=== PATIENT | female | born 1990 | race American Indian/Alaskan Native ===

== ENCOUNTER 2019-04-30 11:26 | Emergency (ER) | payer OTHER ==
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
--- NOTE | 2019-04-30 12:54 | Emergency Department Report ---
HPI - General Chief Complaint: Back Pain/Injury Time Seen by Provider: 04/30/19 11:48 - HPI HPI: Room 36 The patient is a 28-year-old female presenting with a chief complaint back pain. The patient states for possible month she's had pain in her lower back and sharp and constant in nature. Patient states she takes Tylenol and helps temporarily but the pain returns. Patient states the pain increases with movement. Patient denies any preceding trauma. Patient denies history of fever, dysuria or hematuria. Patient currently gives her pain a score of 5/10. Location: [See above] Duration: [See above] Quality: [See above] Severity: [See above] Timing: [See above] Context: [See above] Modifying factors: [See above] Associated signs and symptoms: [see above] ED Past Medical Hx - Past Medical History Previous Medical History?: Yes Hx Asthma: Yes - Surgical History Past Surgical History?: No - Family History Family history: no significant - Social History Smoking Status: Current Some Day Smoker (1 cigarette daily) Substance Use Type: Alcohol (occasional), Marijuana - Medications Home Medications: Home Medications Medication Instructions Recorded Confirmed Last Taken Type ALBUTEROL Inhaler (OR & NICU) 2 puff IH QID PRN #1 inhalation 04/30/19 Unknown Rx [ProAir HFA Inhaler] Albuterol Sulfate [Albuterol 0.63% 0.63 mg IH TID PRN #90 ml 04/30/19 Unknown Rx NEBS] Nitrofurantoin [place]/M-Cryst 100 mg PO Q12HR #14 capsule 04/30/19 Unknown Rx [Macrobid CAP] ED Review of Systems ROS: Stated complaint: BACK PAIN/MISSED PERIOD Other details as noted in HPI Constitutional: denies: fever Eyes: denies: eye pain ENT: denies: throat pain Respiratory: denies: cough Cardiovascular: denies: chest pain Endocrine: no symptoms reported Gastrointestinal: denies: abdominal pain Genitourinary: denies: dysuria, hematuria Musculoskeletal: back pain Neurological: denies: headache Physical Exam - Physical Exam Vital Signs: Vital Signs 04/30/19 11:30 Temperature 98.7 F Pulse Rate 90 Respiratory 18 Rate Blood Pressure 128/76 O2 Sat by Pulse 100 Oximetry Physical Exam: GENERAL: The patient is well-developed well-nourished female lying on stretcher not appearing to be in acute distress. [] HEENT: Normocephalic. Atraumatic. Extraocular motions are intact. Patient has moist mucous membranes. NECK: Supple. Trachea midline CHEST/LUNGS: Clear to auscultation. There is no respiratory distress noted. HEART/CARDIOVASCULAR: Regular. There is no tachycardia. There is no gallop rub or murmur. ABDOMEN: Abdomen is soft, nontender. Patient has normal bowel sounds. There is no abdominal distention. SKIN: There is no rash. There is no edema. There is no diaphoresis. NEURO: The patient is awake, alert, and oriented. The patient is cooperative. The patient has no focal neurologic deficits. The patient has normal speech and gait. MUSCULOSKELETAL: There is no axial tenderness to palpation. There is no CVA tenderness bilaterally. There is no limitation range of motion. There is no evidence of acute injury. ED Course Vital Signs 04/30/19 11:30 Temperature 98.7 F Pulse Rate 90 Respiratory 18 Rate Blood Pressure 128/76 O2 Sat by Pulse 100 Oximetry ED Medical Decision Making - Lab Data Result diagrams: 04/30/19 16:36 - Radiology Data Radiology results: report reviewed (pelvic ultrasound), image reviewed (pelvic ultrasound) [facility] [address] [id number] Ultrasound Report Signed Patient: KAI NEVAREZ MR#: [id number] : 1990 Acct:[id number] Age/Sex: 28 / F ADM Date: 04/30/19 Loc: ED Attending Dr: Ordering Physician: CRYSTAL COOPER MD Date of Service: 04/30/19 Procedure(s): US OB transvaginal Accession Number(s): [id number] cc: CRYSTAL COOPER MD Obstetrical ultrasound. HISTORY: . Right adnexal pain. FINDINGS: Imaging was performed transabdominally and endovaginally. The uterus measures 7.4 x 4.4 x 7 cm. An early gestational sac is dated 7 weeks 5 days. heart tones are 161 bpm. A small subchorionic hemorrhage measures 1.8 x 1.6 x 1.2 cm. Right ovary measures 4.2 x 2.1 x 2.6 cm. A right adnexal mass measuring 2.7 cm appears relatively solid. Left ovary measures 3.1 x 2.2 x 1.9 cm and is normal. Both ovaries demonstrate flow. IMPRESSION: 1. Early intrauterine dated 7 weeks 5 days. A small subchorionic hemorrhage is present. 2. Right adnexal lesion most likely represents a hemorrhagic cyst or other benign lesion. Signer Name: Gino Kramer MD Signed: 04/30/2019 4:40 PM Workstation Name: [id number] Transcribed By: ES Dictated By: Gino Kramer MD Electronically Authenticated By: Gino Kramer MD Signed Date/Time: 04/30/19 1640 DD/ 1636 TD/TT: - Differential Diagnosis lumbar strain, pyelonephritis Critical care attestation.: If time is entered above; I have spent that time in minutes in the direct care of this critically ill patient, excluding procedure time. ED Disposition Clinical Impression: , UTI (urinary tract infection) Disposition: TO HOME OR SELFCARE Is pt being admited?: No Does the pt Need Aspirin: No Condition: Stable Additional Instructions: Return to the emergency department should you develop worsening symptoms, inability to tolerate food or liquids, high fever or any other concerns Prescriptions: Albuterol Sulfate [Albuterol 0.63% NEBS] 0.63 mg IH TID PRN #90 ml PRN Reason: Wheezing Nitrofurantoin [place]/M-Cryst [Macrobid CAP] 100 mg PO Q12HR #14 capsule ALBUTEROL Inhaler (OR & NICU) [ProAir HFA Inhaler] 2 puff IH QID PRN #1 inhalation PRN Reason: Shortness Of Breath Referrals: KAYLA MORAES MD [Staff Physician] - 3-5 Days (Dr. Moraes is an MAINTENANCE PLANNING CLERK. Please follow up with him for further evaluation) Time of Disposition: 17:01
[2019-04-30 15:07] LABS: Bacteria,Urine 1+ /HPF (Negative); Bilirubin,Urine NEG (Negative); Blood,Urine NEG (Negative); Color,Urine Yellow (Yellow); Mucus,Urine FEW /HPF; Protein,Urine <15 mg/dL mg/dL (Negative); Urobilinogen,Urine < 2.0 mg/dL (<2.0)
[2019-04-30 15:08] LABS: HCG Qualitative,Urine Positive (Negative)
--- NOTE | 2019-04-30 16:32 | Ultrasound Report ---
[facility] OBSTETRIC ULTRASOUND HISTORY: Right pelvic pain COMPARISON: None. TECHNIQUE: Routine transabdominal OB ultrasound performed. FINDINGS: Uterus: The uterus measures 7.4 x 4.4 x 7.0 cm. Gestational Sac: Well-defined oval shape and intrauterine in location. Yolk Sac: Normal in appearance. Fetus/Embryo: Bushyhead-rump length of 1.4 cm, corresponding to an estimated gestational age of 7 weeks 5 days. Embryonic/ anatomy is too small for evaluation. Embryonic/ cardiac activity: 164bpm Placenta: Too small for evaluation. Amniotic fluid volume: Subjectively appropriate for gestational age. Ovaries: The right ovary is normal in size and appearance with normal blood flow, measuring 4.2 x 2. 1 x 2.6 cm. The left ovary is normal in size and appearance with normal blood flow, measuring 3.1 x 2.2 x 1.9 cm. Hypoechoic space-occupying mass in the ovary with peripheral vascularity is most likel y the corpus luteum. Additional findings: A small subchorionic bleed is suspected along the anterior gestational sac. IMPRESSION Early live intrauterine . Small subchorionic bleed. Signer Name: Shashank Whitfield Jr, MD Signed: 04/30/2019 4:27 PM Workstation Name: [id number]
--- NOTE | 2019-04-30 16:44 | Ultrasound Report ---
Obstetrical ultrasound. HISTORY: . Right adnexal pain. FINDINGS: Imaging was performed transabdominally and endovaginally. The uterus measures 7.4 x 4.4 x 7 cm. An early gestational sac is dated 7 weeks 5 days. heart tones are 161 bpm. A small subchor ionic hemorrhage measures 1.8 x 1.6 x 1.2 cm. Right ovary measures 4.2 x 2.1 x 2.6 cm. A right adnexal mass measuring 2.7 cm appears relatively jill id. Left ovary measures 3.1 x 2.2 x 1.9 cm and is normal. Both ovaries demonstrate flow. IMPRESSION: 1. Early intrauterine dated 7 weeks 5 days. A small subchorionic hemorrhage is present. 2. Right adnexal lesion most likely represents a hemorrhagic cyst or other benign lesion. Signer Name: Gino Kramer MD Signed: 04/30/2019 4:40 PM Workstation Name: [id number]
[2019-04-30 16:54] LABS: Basophils # (Auto) 0.1 K/mm3 (0.0-0.1); Basophils % (Auto) 0.6 % (0.0-1.8); Eosinophils # (Auto) 0.8 K/mm3 (0.0-0.4); Eosinophils % (Auto) 5.4 % (0.0-4.3); Hematocrit 40.8 % (30.3-42.9); Hemoglobin 13.7 gm/dl (10.1-14.3); Lymphocytes # (Auto) 2.6 K/mm3 (1.2-5.4); Lymphocytes % (Auto) 18.2 % (13.4-35.0); Mean Corpuscular HGB Conc 34 % (30-34); Mean Corpuscular Volume 87 fl (79-97); Monocytes # (Auto) 0.7 K/mm3 (0.0-0.8); Monocytes % (Auto) 5.1 % (0.0-7.3); Platelet Count 338 K/mm3 (140-440); Red Cell Distribution Width 13.3 % (13.2-15.2)
[2019-04-30 17:14] LABS: BUN/Creatinine Ratio 10; Blood Urea Nitrogen 5 mg/dL (7-17); Calcium 9.2 mg/dL (8.4-10.2); Hemolysis Index 0
[2019-04-30 17:30] VITALS: BP 130/90
== END 2019-04-30 17:15 | disposition home or self-care (01) ==
LOC: ED 11:26
DX: O23.41 Unspecified infection of urinary tract in pregnancy, first trimester (principal); O99.511 Diseases of the respiratory system complicating pregnancy, first trimester; J45.909 Unspecified asthma, uncomplicated; O99.331 Smoking (tobacco) complicating pregnancy, first trimester; F17.200 Nicotine dependence, unspecified, uncomplicated; Z3A.01 Less than 8 weeks gestation of pregnancy
CPT/HCPCS: 36415; 76801; 76817; 80048; 81001; 81025; 84702; 85025

== ENCOUNTER 2019-06-10 10:43 | Observation (INO) | payer OTHER ==
[2019-06-10] MEDS ORDERED: IPRATROPIUM 0.02% NEBU 2.5 ML IH ONE ×2 (10:59→11:00)
[2019-06-10] MEDS ORDERED: MAGNESIUM SULFATE 2 GM/50 ML BAG IV ONE ×2 (10:59→11:00)
[2019-06-10] MEDS ORDERED: ALBUTEROL 2.5 MG/3 ML NEBU IH ONE ×4 (10:59→13:55)
[2019-06-10] MEDS ORDERED: SODIUM CHLORIDE 0.9% 1000 ML 1,000 ML ONE (11:00)
[2019-06-10] MEDS ORDERED: SODIUM CHLORIDE 0.9% 1000 ML 1,000 ML IV ONE (11:00)
--- NOTE | 2019-06-10 13:03 | Emergency Department Report ---
HPI - General Chief Complaint: Adult Asthma Time Seen by Provider: 06/10/19 10:57 - HPI HPI: 28-year-old female presents to the emergency department with complaint of shortness of breath, wheezing, coughing that she believes is an asthma exacerbation that has been going on for the past 2-3 days. She's been using her home nebulizer without any relief. No fever, chest pain. Patient says that she has also been dealing with a "cold" and says that usually her asthma is uncontrolled when she has a cold. Patient is currently 13 weeks pr egnant. She has just established care with an BIBLICAL STUDIES PROFESSOR through the [facility] system. ED Past Medical Hx - Past Medical History Previous Medical History?: Yes Hx Asthma: Yes - Social History Smoking Status: Never Smoker - Medications Home Medications: Home Medications Medication Instructions Recorded Confirmed Last Taken Type ALBUTEROL Inhaler (OR & NICU) 2 puff IH QID PRN #1 inhalation 04/30/19 06/11/19 Unknown Rx [ProAir HFA Inhaler] Albuterol Sulfate [Albuterol 0.63% 0.63 mg IH TID PRN #90 ml 04/30/19 06/11/19 Unknown Rx NEBS] ED Review of Systems ROS: Stated complaint: ASTHMA Other details as noted in HPI Comment: All other systems reviewed and negative Constitutional: denies: chills, fever Eyes: denies: eye pain, vision change ENT: denies: ear pain, throat pain Respiratory: cough, shortness of breath, wheezing Cardiovascular: denies: chest pain, edema Gastrointestinal: denies: abdominal pain, vomiting Genitourinary: denies: dysuria, discharge Musculoskeletal: denies: back pain, arthralgia Skin: denies: rash, lesions Neurological: denies: headache, weakness Physical Exam - Physical Exam Vital Signs: Vital Signs 06/10/19 06/10/19 06/10/19 10:46 10:52 10:54 Pulse Rate 124 H 110 H Respiratory 22 33 H 20 Rate Blood Pressure 134/77 O2 Sat by Pulse 98 97 98 Oximetry 06/10/19 06/10/19 11:00 11:16 Pulse Rate 121 H 103 H Respiratory 22 33 H Rate Blood Pressure 113/81 113/81 O2 Sat by Pulse 97 Oximetry Physical Exam: GENERAL: The patient is well-developed well-nourished. HENT: Normocephalic. Atraumatic. Patient has moist mucous membranes. EYES: Extraocular motions are intact. NECK: Supple. Trachea is midline. CHEST/LUNGS: Moderate to severe wheezing throughout the chest. There is some tachypnea but no accessory muscle use. HEART/CARDIOVASCULAR: Regular. There is moderate tachycardia. There is no murmur. ABDOMEN: Abdomen is soft, nontender. Patient has normal bowel sounds. There is no abdominal distention. SKIN: Skin is warm and dry. NEURO: The patient is awake, alert, and oriented. The patient is cooperative. The patient has no focal neurologic deficits. Normal speech. MUSCULOSKELETAL: There is no tenderness or deformity. There is no evidence of acute injury. ED Course Vital Signs 06/10/19 06/10/19 06/10/19 10:46 10:52 10:54 Pulse Rate 124 H 110 H Respiratory 22 33 H 20 Rate Blood Pressure 134/77 O2 Sat by Pulse 98 97 98 Oximetry 06/10/19 06/10/19 11:00 11:16 Pulse Rate 121 H 103 H Respiratory 22 33 H Rate Blood Pressure 113/81 113/81 O2 Sat by Pulse 97 Oximetry - Consultations Consultation #1: 06/10/19 15:[address] Lacey, OBGYN, regarding this patient with an asthma exacerbation requiring admission. She is ok with giving the solumedrol in this early . She says she is happy to consult if necessary and asked to speak to the admitting hospitalist regarding how she can assist. ED Medical Decision Making - Lab Data Result diagrams: 06/10/19 13:55 06/11/19 06:40 - Radiology Data Radiology results: image reviewed interpreted by me: Chest x-ray does not show any acute process. There are no pleural effusions, obvious pneumonia and there is no pneumothorax. - Medical Decision Making This patient presents with a few days of progressively worsening shortness of breath, wheezing and coughing that she feels is consistent with her asthma. This is refractory to the home nebulized treatments she has been using. Patient does present with some moderate to severe bronchospasm. She has some tachypnea but does not require BiPAP or intubation at this time. She was given IV fluid, magnesium, and a continuous breathing treatment. She was reevaluated and did not have any improvement. A shielded chest x-ray was completed that did not show any pneumonia, pleural effusions or any other acute process. Labs have been unremarkable. The patient was given another 7.5 mg of albuterol and once again reevaluated and did not appear to have any improvement. Solu-Medrol was added. Along with the breathing treatments that she had at home prior to arrival, the patient has had close to 25 mg of albuterol, along with the other medications as treatment given here, and still has tachypnea, tachycardia and moderate bronchospasm. For this reason, I feel the patient would benefit from admission to the hospital. The case was presented to the admitting hospitalist, Dr. Berumen, for further evaluation and either admission or further disposition. At his request, given the patient's status, the BIBLICAL STUDIES PROFESSOR on-call has been contacted and consulted. - Differential Diagnosis asthma, pneumonia, CHF, bronchitis Critical Care Time: No Critical care attestation.: If time is entered above; I have spent that time in minutes in the direct care of this critically ill patient, excluding procedure time. ED Disposition Clinical Impression: Status asthmaticus Qualifiers: Asthma severity: unspecified severity Asthma persistence: unspecified Qualified Code(s): J45.902 - Unspecified asthma with status asthmaticus Qualifiers: Weeks of gestation: 13 weeks Qualified Code(s): Z3A.13 - 13 weeks gestation of Disposition: OP ADMIT IP TO THIS HOSP Is pt being admited?: Yes Condition: Fair Time of Disposition: 15:29
--- NOTE | 2019-06-10 14:13 | XRay Report ---
CHEST 1 VIEW 06/10/2019 1:45 PM INDICATION / CLINICAL INFORMATION: SOB. COMPARISON: None available. FINDINGS: SUPPORT DEVICES: None. HEART / MEDIASTINUM: No significant abnormality. LUNGS / PLEURA: No significant pulmonary or pleural abnormality. No pneumothorax. ADDITIONAL FINDINGS: No significant additional findings. IMPRESSION: 1. No acute findings. Signer Name: Jose Armando MD Signed: 06/10/2019 2:09 PM Workstation Name: [id number]
[2019-06-10 14:14] LABS: Basophils % (Auto) 0.2 % (0.0-1.8); Eosinophils # (Auto) 0.3 K/mm3 (0.0-0.4); Eosinophils % (Auto) 2.3 % (0.0-4.3); Hematocrit 31.4 % (30.3-42.9); Hemoglobin 10.5 gm/dl (10.1-14.3); Lymphocytes # (Auto) 1.4 K/mm3 (1.2-5.4); Lymphocytes % (Auto) 9.5 % (13.4-35.0); Mean Corpuscular HGB Conc 34 % (30-34); Mean Corpuscular Volume 86 fl (79-97); Monocytes # (Auto) 0.7 K/mm3 (0.0-0.8); Monocytes % (Auto) 4.7 % (0.0-7.3); Platelet Count 218 K/mm3 (140-440); Red Blood Count 3.66 M/mm3 (3.65-5.03); Red Cell Distribution Width 12.9 % (13.2-15.2)
[2019-06-10 14:19] LABS: INR 0.96 (0.87-1.13)
[2019-06-10 14:34] LABS: BUN/Creatinine Ratio 10; Blood Urea Nitrogen 4 mg/dL (7-17); Calcium 7.7 mg/dL (8.4-10.2); Hemolysis Index 1
[2019-06-10] MEDS ORDERED: methylPREDNISolone Sod Succinate 125 MG/2 ML INJ IV ONE (14:55)
--- NOTE | 2019-06-10 18:02 | History and Physical Report ---
History of Present Illness Chief complaint: Im wheezing, and I have a cold History of present illness: 28 YO Female at 13 weeks Gestation with Asthma, Nicotine Dependence presents to ED for evaluation. Pt states that she has experienced shortness of breath, nasal congestion, dry cough over the past 3 days with worsening symptoms over the same time frame. Pt states that symptoms are not relieved with increased nebulizer therapy. Pt transported to [facility] via private vehicle. Pt seen and evaluated in ED and found to have Asthma Exacerbation. Pt treated with nebulizer therapy without significant improvement in symptoms. Pt placed in observation status and admitted to medical floor. Pt denies fever, chills, CP, Palpitations, NVD, Trauma, BRBPR, Skin Rash, Syncope, or recent ill contacts. Past History Past Medical History: other (see HPI) Past Surgical History: No surgical history, Other (reviewed) Social history: single, smoking. denies: alcohol abuse, prescription drug abuse Family history: hypertension Medications and Allergies Allergies Allergy/AdvReac Type Severity Reaction Status Date / Time No Known Allergies Allergy Unverified 04/30/19 11:26 Home Medications Medication Instructions Recorded Confirmed Last Taken Type ALBUTEROL Inhaler (OR & NICU) 2 puff IH QID PRN #1 inhalation 04/30/19 Unknown Rx [ProAir HFA Inhaler] Albuterol Sulfate [Albuterol 0.63% 0.63 mg IH TID PRN #90 ml 04/30/19 Unknown Rx NEBS] Nitrofurantoin [place]/M-Cryst 100 mg PO Q12HR #14 capsule 04/30/19 Unknown Rx [Macrobid CAP] Review of Systems Constitutional: no weight loss, no weight gain, no fever, no chills, no anorexia, no weakness, no malaise, no lethargy Ears, nose, mouth and throat: nasal congestion, sore throat, no ear pain, no ear discharge Cardiovascular: no chest pain, no orthopnea, no palpitations, no rapid/irregular heart beat, no edema, no syncope Respiratory: cough, cough with sputum, shortness of breath, congestion, wheezing, no pleurisy, no pain, no pain on inspiration Gastrointestinal: no abdominal pain, no nausea, no vomiting, no diarrhea, no constipation, no change in bowel habits Genitourinary Female: no pelvic pain, no flank pain, no dysuria, no urinary frequency Rectal: no pain, no incontinence, no bleeding Musculoskeletal: no neck stiffness, no shooting arm pain, no arm numbness/tingling, no low back pain, no redness of joints Integumentary: no rash, no pruritis, no sores, no wounds, no boils Psychiatric: no anxiety, no memory loss, no sleep disturbances, no hypersomnia, no change in libido, no suicidal ideation Endocrine: no cold intolerance, no heat intolerance, no polyuria, no nocturia Hematologic/Lymphatic: no easy bruising, no easy bleeding, no lymphadenopathy, no lymphedema Allergic/Immunologic: no urticaria, no allergic rhinitis, no persistent infections, no angioedema Exam - Constitutional Vitals: Temp Pulse Resp BP Pulse Ox 124 H 18 133/84 95 06/10/19 17:30 06/10/19 17:30 06/10/19 17:30 06/10/19 16:30 General appearance: Present: mild distress - EENT Eyes: Present: PERRL ENT: hearing intact, clear oral mucosa - Neck Neck: Present: supple, normal ROM - Respiratory Respiratory effort: labored, accessory muscle use Respiratory: bilateral: diminished, wheezing - Cardiovascular Heart Sounds: Present: S1 & S2. Absent: rub, click - Extremities Extremities: pulses symmetrical, No edema Peripheral Pulses: within normal limits - Abdominal General gastrointestinal: Present: soft, non-tender, non-distended, normal bowel sounds Female genitourinary: Present: normal - Integumentary Integumentary: Present: clear, warm, dry - Musculoskeletal Musculoskeletal: gait normal, strength equal bilaterally - Psychiatric Psychiatric: appropriate mood/affect, intact judgment & insight - Neurologic Neurologic: CNII-XII intact, moves all extremities Results - Labs CBC & Chem 7: 06/10/19 13:55 06/10/19 13:55 Labs: Abnormal lab results 06/10/19 06/10/19 06/10/19 Range/Units 13:55 13:55 15:57 WBC 15.0 H (4.5-11.0) K/mm3 RDW 12.9 L (13.2-15.2) % Lymph % (Auto) 9.5 L (13.4-35.0) % Seg Neutrophils % 83.3 H (40.0-70.0) % Seg Neutrophils # 12.5 H (1.8-7.7) K/mm3 POC ABG pCO2 29.1 L (35-45) POC ABG pO2 78 L (80-105) Chloride 107.8 H (98-107) mmol/L Carbon Dioxide 21 L (22-30) mmol/L BUN 4 L (7-17) mg/dL Creatinine 0.4 L (0.7-1.2) mg/dL Calcium 7.7 L (8.4-10.2) mg/dL Assessment and Plan - Patient Problems (1) Asthma exacerbation Current Visit: Yes Status: Acute Qualifiers: Asthma severity: moderate Asthma persistence: persistent Qualified Code(s): J45.41 - Moderate persistent asthma with (acute) exacerbation Plan to address problem: Supplemental oxygen, nebulizer therapy, Iv steroid therapy, pulse oximetry, CBC, CMP, supportive care. (2) Nicotine dependence Current Visit: Yes Status: Acute Qualifiers: Nicotine product type: cigarettes Substance use status: in withdrawal Qualified Code(s): F17.213 - Nicotine dependence, cigarettes, with withdrawal Plan to address problem: Smoking cessation counseling, supportive care. (3) Current Visit: Yes Status: Acute Qualifiers: Weeks of gestation: 13 weeks Qualified Code(s): Z3A.13 - 13 weeks gestation of Plan to address problem: OB consulted in ED. (4) Leukocytosis Current Visit: Yes Status: Acute Qualifiers: Leukocytosis type: unspecified Qualified Code(s): D72.829 - Elevated white blood cell count, unspecified Plan to address problem: Secondary to steroid administration, supportive care, Repeat cbc in AM (5) DVT prophylaxis Current Visit: Yes Status: Acute Plan to address problem: SCD to BLE while in bed,
[2019-06-10] MEDS ORDERED: ONDANSETRON 4 MG/2 ML INJ IV PRN (18:03)
[2019-06-11] MEDS: ACETAMINOPHEN 325 MG TAB PO PRN ×2 (01:35→16:07)
[2019-06-11] MEDS: ALBUTEROL 2.5 MG/3 ML NEBU IH PRN ×2 (01:52→08:53)
[2019-06-11] MEDS: methylPREDNISolone Sod Succinate 40 MG/1 ML INJ IV SCH ×2 (05:44→17:24)
[2019-06-11 07:34] LABS: BUN/Creatinine Ratio 15; Blood Urea Nitrogen 6 mg/dL (7-17); Calcium 8.6 mg/dL (8.4-10.2); Hemolysis Index 1
--- NOTE | 2019-06-11 13:38 | Consultation ---
History of Present Illness Consult date: 06/11/19 Reason for consult: early problem History of present illness: 28y/o @ 13+5 weeks admitted for acute exacerbation of asthma. Patient reports having to use her inhaler every hour to manage her symptoms. She denies any vaginal bleeding or pelvic pain. Patient had an ultrasound 04/30 which established her EDC @ 12/12/19. The patient is being admitted for management of her asthma. Past History Past Medical History: asthma - Obstetrical History Expected Date of Delivery: 12/12/19 Actual Gestation: 13 Week(s) 5 Day(s) : 1 Para: 0 Hx # Term Pregnancies: 0 Number of Pregnancies: 0 Spontaneous Abortions: 0 Induced : 0 Number of Living Children: 0 Medications and Allergies Allergies Allergy/AdvReac Type Severity Reaction Status Date / Time No Known Allergies Allergy Unverified 04/30/19 11:26 Home Medications Medication Instructions Recorded Confirmed Last Taken Type ALBUTEROL Inhaler (OR & NICU) 2 puff IH QID PRN #1 inhalation 04/30/19 06/11/19 Unknown Rx [ProAir HFA Inhaler] Albuterol Sulfate [Albuterol 0.63% 0.63 mg IH TID PRN #90 ml 04/30/19 06/11/19 Unknown Rx NEBS] Active Meds: Active Medications Acetaminophen (Tylenol) 650 mg PO Q4H PRN PRN Reason: Pain MILD(1-3)/Fever >100.5/[place] Last Admin: 06/11/19 01:35 Dose: 650 mg Documented by: Albuterol (Proventil) 2.5 mg IH Q4HRT PRN PRN Reason: Shortness Of Breath Last Admin: 06/11/19 08:53 Dose: 2.5 mg Documented by: Methylprednisolone Sodium Succinate (Solu-Medrol) 40 mg IV Q12H JARETT Last Admin: 06/11/19 05:44 Dose: 40 mg Documented by: Ondansetron HCl (Zofran) 4 mg IV Q8H PRN PRN Reason: Nausea And Vomiting Sodium Chloride (Sodium Chloride Flush Syringe 10 Ml) 10 ml IV BID JARETT Last Admin: 06/10/19 22:00 Dose: 10 ml Documented by: Sodium Chloride (Sodium Chloride Flush Syringe 10 Ml) 10 ml IV PRN PRN PRN Reason: LINE FLUSH Review of Systems All systems: negative Respiratory: shortness of breath, wheezing, respiratory infections - Vital Signs Vital signs: Vital Signs Pulse Resp BP Pulse Ox 124 H 22 134/77 98 06/10/19 10:46 06/10/19 10:46 06/10/19 10:46 06/10/19 10:46 Temp Pulse Resp BP Pulse Ox 99.0 F 98 H 18 111/75 97 06/11/19 11:31 06/11/19 11:31 06/11/19 11:31 06/11/19 11:31 06/11/19 11:31 Results Result Diagrams: 06/10/19 13:55 06/11/19 06:40 Abnormal lab results 06/10/19 06/10/19 06/10/19 Range/Units 13:55 13:55 15:57 WBC 15.0 H (4.5-11.0) K/mm3 RDW 12.9 L (13.2-15.2) % Lymph % (Auto) 9.5 L (13.4-35.0) % Seg Neutrophils % 83.3 H (40.0-70.0) % Seg Neutrophils # 12.5 H (1.8-7.7) K/mm3 POC ABG pCO2 29.1 L (35-45) POC ABG pO2 78 L (80-105) Sodium (137-145) mmol/L Chloride 107.8 H (98-107) mmol/L Carbon Dioxide 21 L (22-30) mmol/L BUN 4 L (7-17) mg/dL Creatinine 0.4 L (0.7-1.2) mg/dL Calcium 7.7 L (8.4-10.2) mg/dL 06/11/19 Range/Units 06:40 WBC (4.5-11.0) K/mm3 RDW (13.2-15.2) % Lymph % (Auto) (13.4-35.0) % Seg Neutrophils % (40.0-70.0) % Seg Neutrophils # (1.8-7.7) K/mm3 POC ABG pCO2 (35-45) POC ABG pO2 (80-105) Sodium 136 L (137-145) mmol/L Chloride (98-107) mmol/L Carbon Dioxide 20 L (22-30) mmol/L BUN 6 L (7-17) mg/dL Creatinine 0.4 L (0.7-1.2) mg/dL Calcium (8.4-10.2) mg/dL All other labs normal. Assessment and Plan - Patient Problems (1) Asthma exacerbation Current Visit: Yes Status: Acute Qualifiers: Asthma severity: moderate Asthma persistence: persistent Qualified Code(s): J45.41 - Moderate persistent asthma with (acute) exacerbation Plan to address problem: patient has scheduled her New OB orientation at [place] on 06/28 patient is cleared to receive steroids to manage asthma exacerbation (2) Current Visit: Yes Status: Acute Qualifiers: Weeks of gestation: 13 weeks Qualified Code(s): Z3A.13 - 13 weeks gestation of
--- NOTE | 2019-06-11 13:45 | Discharge Summary ---
Providers - Providers Date of Admission: 06/10/19 18:03 Date of discharge: 06/11/19 Attending physician: JACE NOYOLA 06/10/19 15:11 Consult to Physician [CONS] Routine Comment: Consulting Provider: JOSE FRANCISCO CHING Physician Instructions: Reason For Exam: Primary care physician: [employer] Hospitalization Condition: Fair Hospital course: Discharge diagnosis: (1) Acute Asthma exacerbation Treated with Supplemental oxygen, nebulizer therapy, Iv steroid therapy, pulse oximetry, supportive care. (2) Nicotine dependence Smoking cessation counseling, supportive care. (3) - 1st trimester OB consulted in ED. will cont outpt followup (4) Leukocytosis, reactive - likely SIRS from asthma w/o organ damage Disposition: DC-01 TO HOME OR SELFCARE Time spent for discharge: 34 minutes Core Measure Documentation - Palliative Care Palliative Care/ Comfort Measures: Not Applicable - Core Measures Any of the following diagnoses?: none Exam - Constitutional Vitals: Temp Pulse Resp BP Pulse Ox 99.0 F 98 H 18 111/75 97 06/11/19 11:31 06/11/19 11:31 06/11/19 11:31 06/11/19 11:31 06/11/19 11:31 General appearance: Present: no acute distress, well-nourished - EENT Eyes: Present: PERRL ENT: hearing intact, clear oral mucosa - Neck Neck: Present: supple, normal ROM - Respiratory Respiratory effort: normal Respiratory: bilateral: wheezing (mild) - Cardiovascular Heart Sounds: Present: S1 & S2. Absent: rub, click - Extremities Extremities: pulses symmetrical, No edema Peripheral Pulses: within normal limits - Abdominal General gastrointestinal: Present: soft, non-tender, non-distended, normal bowel sounds - Integumentary Integumentary: Present: clear, warm, dry - Musculoskeletal Musculoskeletal: gait normal, strength equal bilaterally - Psychiatric Psychiatric: appropriate mood/affect, intact judgment & insight - Neurologic Neurologic: CNII-XII intact, moves all extremities Plan Activity: advance as tolerated Weight Bearing Status: Non-Weight Bearing Diet: regular Special Instructions: smoking cessation Additional Instructions: f/u at [facility] in one week Follow up with: PRIMARY CARE, [Primary Care Provider] - 3-5 Days
[2019-06-11 17:56] VITALS: BP 135/76
== END 2019-06-11 18:11 | disposition home or self-care (01) ==
LOC: ED 10:43 → 3A 18:03
PROVIDERS: ADMIT Internal Medicine; ATTEND Internal Medicine
DX: O99.511 Diseases of the respiratory system complicating pregnancy, first trimester (principal); J45.902 Unspecified asthma with status asthmaticus; O99.331 Smoking (tobacco) complicating pregnancy, first trimester; F17.213 Nicotine dependence, cigarettes, with withdrawal; O99.111 Other diseases of the blood and blood-forming organs and certain disorders involving the immune mechanism complicating pregnancy, first trimester; D72.829 Elevated white blood cell count, unspecified; Z71.6 Tobacco abuse counseling; Z79.899 Other long term (current) drug therapy; Z3A.13 13 weeks gestation of pregnancy
CPT/HCPCS: 36415; 71045; 80048; 82803; 83880; 85025; 85610; 94640; 94644; 94760; 96365; 96375; 96376; 99284; 99406; G0378; J2920; J2930; J3475; J7030